=== PATIENT | female | born 1955 | race Hispanic/Latino ===

== ENCOUNTER → 2020-11-12 | Outpatient (CLI) | payer OTHER ==
[~2020-11-12] MED LIST: IOHEXOL-350 50ML VIAL IV ONE
== END | disposition home or self-care (01) ==
LOC: RAH 10:00
PROVIDERS: ATTEND Internal Medicine
DX: R91.1 Solitary pulmonary nodule (principal); J84.10 Pulmonary fibrosis, unspecified
CPT/HCPCS: 71270; Q9967